=== PATIENT | female | born 1960 | race African-American/Black ===

== ENCOUNTER → 2016-07-08 | Outpatient (CLI) | payer OTHER ==
--- NOTE | ~2016-07-08 | MR189 ---
[facility] A Service of [facility] & [facility] RADIOLOGY TEXT RESULTS PATIENT: MINERVA MITCHELL LOCATION: [facility] : 62 UNIT #: [id number] AGE: [address]: SOFY ALMANZAR APRN SEX: F ORDER DR: [id number] [facility] [address] [place], [place] [address] [id number] O MR#: [id number] Acc #: [id number] NAME: MINERVA MITCHELL : 1960 SEX: F STUDY DATE/TIME: 07/08/2016 9:50 UNIT: [facility] ROOM: STUDY DESCRIPTION: MRV Head Wo Contrast Attending Physician: Sofy Almanzar Aprn Referring Physician: Sofy Almanzar Aprn Ordering Physician: Sofy Almanzar Aprn Primary Care Physician: Nad[facility] REPORT This report is preliminary unless electronic signature is present. EXAM MR venogram HISTORY Chronic daily headaches over the past 25 years, worsening over the past several months, accompanied by visual changes for the past 2 months. TECHNIQUE MR venography was performed with 2-D [id number] technique. FINDINGS The major dural venous sinuses are all widely patent. No luminal filling defects are seen. No significant venous anomalies are noted. IMPRESSION Normal. Dictated by... Ravi Plaza M.D. THIS IS AN ELECTRONICALLY VERIFIED REPORT Ravi Plaza M.D. at 07/08/2016 6:48 PM RLF/to TD: 07/08/2016 12:46 JOB #: [id number] [facility] REPORT Page 1 of 1 COPY
== END | disposition home or self-care (01) ==
LOC: CMRI 09:11
DX: R51 Headache (principal); H53.9 Unspecified visual disturbance
CPT/HCPCS: 70544